=== PATIENT | female | born 1945 | race Two or more races ===

== ENCOUNTER → 2016-08-11 | Outpatient (CLI) | payer OTHER ==
[~2016-08-11] MED LIST: LETR2.5T
[2016-08-11 07:48] LABS: Basophils # (auto) 0 uL; Basophils % (auto) 0.2 % (0.0-2.0); Eosinophils # (auto) 0 uL; Hematocrit 42.7 % (36.0-46.0); Hemoglobin 14.4 g/dL (12.2-16.2); Lymphocytes # (auto) 1.3 uL; Lymphocytes % (auto) 22.6 % (10.0-50.0); Mean Corpuscular Hemoglobin 28.7 pg (28.0-32.0); Mean Corpuscular Hgb Conc. 33.8 g/dL (32.0-36.0); Mean Corpuscular Volume 84.9 fL (80.0-100.0); Mean Platelet Volume 8.4 fL (7.4-10.4); Monocytes # (auto) 0.6 uL; Monocytes % (auto) 9.6 % (0.0-12.0); Neutrophils % (auto) 67.6 % (37.0-80.0); Platelet Count (auto) 229 10^3/uL (140-450); Red Cell Distribution Width 13.8 % (11.6-16.0); White Blood Cell 5.9 10^3/uL (4.4-10.8)
[2016-08-11 07:52] LABS: Urine Bilirubin Negative (Negative); Urine Blood Negative /uL (Negative); Urine Color Yellow (Yellow); Urine Glucose Normal (Normal); Urine Ketone Negative (Negative); Urine Nitrite Negative (Negative); Urine RBC 1 /hpf (0 - 4); Urine Squamous Epithelial Cell FEW /hpf (<5); Urine Urobilinogen Normal (Negative)
[2016-08-11 08:04] LABS: Albumin 3.7 g/dL (3.4-5.0); BUN/Creatinine Ratio 31.3; Bilirubin, Total 0.5 mg/dL (0.2-1.0); Potassium 4.1 mmol/L (3.5-5.1); Total Protein 7.6 g/dL (6.4-8.2)
== END | disposition home or self-care (01) ==
LOC: LAB 07:18
DX: I10 Essential (primary) hypertension (principal); M81.0 Age-related osteoporosis without current pathological fracture; Z12.11 Encounter for screening for malignant neoplasm of colon
CPT/HCPCS: 36415; 80053; 80061; 81001; 82306; 84443; 85025

== ENCOUNTER → 2016-08-18 | Outpatient (CLI) | payer OTHER | END | disposition home or self-care (01) | LOC: LAB 11:18 | DX: Z12.11 Encounter for screening for malignant neoplasm of colon (principal); I10 Essential (primary) hypertension; M81.0 Age-related osteoporosis without current pathological fracture | CPT/HCPCS: 82270 ==

== ENCOUNTER → 2017-01-22 | Outpatient (CLI) | payer OTHER ==
[2017-01-22 07:55] LABS: Basophils # (auto) 0 uL; Basophils % (auto) 0.2 % (0.0-2.0); Eosinophils # (auto) 0 uL; Hematocrit 41.4 % (36.0-46.0); Lymphocytes # (auto) 1.8 uL; Lymphocytes % (auto) 27.5 % (10.0-50.0); Mean Corpuscular Hemoglobin 29.5 pg (28.0-32.0); Mean Corpuscular Hgb Conc. 33.9 g/dL (32.0-36.0); Monocytes # (auto) 0.6 uL; Monocytes % (auto) 9.2 % (0.0-12.0); Neutrophils % (auto) 63.1 % (37.0-80.0); Nucleated Red Blood Cells % 0.1 %; Platelet Count (auto) 204 10^3/uL (140-450); Red Cell Distribution Width 13.5 % (11.8-14.3); White Blood Cell 6.4 10^3/uL (4.4-10.8)
[2017-01-22 08:18] LABS: Albumin 3.5 g/dL (3.4-5.0); BUN/Creatinine Ratio 43.6; Bilirubin, Total 0.7 mg/dL (0.2-1.0); Calcium 8.6 mg/dL (8.5-10.1); Potassium 3.8 mmol/L (3.5-5.1); Total Protein 7.6 g/dL (6.4-8.2)
[2017-01-22 08:20] LABS: Urine Bilirubin Negative (Negative); Urine Blood Negative /uL (Negative); Urine Color Yellow (Yellow); Urine Glucose Normal (Normal); Urine Ketone Negative (Negative); Urine Mucus FEW (None Seen); Urine Nitrite Negative (Negative); Urine RBC <1 /hpf (0 - 4); Urine Squamous Epithelial Cell FEW /hpf (<5); Urine Urobilinogen Normal (Negative)
== END | disposition home or self-care (01) ==
LOC: LAB 07:28
PROVIDERS: ATTEND Internal Medicine
DX: I10 Essential (primary) hypertension (principal); K21.9 Gastro-esophageal reflux disease without esophagitis; M81.0 Age-related osteoporosis without current pathological fracture
CPT/HCPCS: 36415; 80053; 80061; 81001; 82043; 82306; 85025; 85652

== ENCOUNTER 2018-01-26 08:36 | Inpatient (IN) | payer OTHER ==
[~2018-01-26] VITALS: Ht 149.9 cm; Wt 71.4 kg
[2018-01-26] MEDS ORDERED: ASPirin 81 mg TAB PO ONE (10:30)
[2018-01-26 10:32] LABS: Basophils # (auto) 0 uL; Basophils % (auto) 0.1 % (0.0-2.0); Eosinophils # (auto) 0 uL; Hematocrit 43.4 % (36.0-46.0); Hemoglobin 14.9 g/dL (12.2-16.2); Lymphocytes # (auto) 1.2 uL; Lymphocytes % (auto) 16.6 % (10.0-50.0); Mean Corpuscular Hemoglobin 30.1 pg (28.0-32.0); Mean Corpuscular Hgb Conc. 34.3 g/dL (32.0-36.0); Mean Corpuscular Volume 87.7 fL (80.0-100.0); Monocytes # (auto) 0.5 uL; Monocytes % (auto) 6.5 % (0.0-12.0); Neutrophils # (auto) 5.5 uL; Neutrophils % (auto) 76.8 % (37.0-80.0); Nucleated Red Blood Cells % 0.2 %; Platelet Count (auto) 207 10^3/uL (140-450); Red Blood Cells 4.94 10^6/uL (4.0-5.20); Red Cell Distribution Width 13.3 % (11.8-14.3); White Blood Cell 7.1 10^3/uL (4.4-10.8)
[2018-01-26 10:52] LABS: INR 0.93 (0.9-1.15); Partial Thromboplastin Time 26.6 sec (23.78-33.04)
[2018-01-26 11:01] LABS: Alanine Aminotransferase 21 U/L (13-56); Albumin 3.6 g/dL (3.4-5.0); Alkaline Phosphatase 99 U/L (45-117); Anion Gap 6 (5-15); Aspartate Aminotransferase 15 U/L (15-37); BUN/Creatinine Ratio 23.2; Bilirubin, Total 0.5 mg/dL (0.2-1.0); Blood Urea Nitrogen 16 mg/dL (7-18); Calcium 8.6 mg/dL (8.5-10.1); Carbon Dioxide 25 mmol/L (21-32); Chloride 110 mmol/L (98-107); GFR African American 107 mL/min; GFR Non-African American 88 mL/min; Glucose 92 mg/dL (74-106); Magnesium 2.4 mg/dL (1.6-2.6); Potassium 3.6 mmol/L (3.5-5.1); Sodium 141 mmol/L (136-145); Total Protein 7.9 g/dL (6.4-8.2)
[2018-01-26] MEDS ORDERED: LORazepam 0.5 MG TAB PO PRN (16:00)
[2018-01-26] MEDS ORDERED: ONDANSETRON HCL 4 MG/2 ML VIAL IV PRN (16:00)
[2018-01-26] MEDS ORDERED: HYDROcodone-ACET 5/325MG TAB PO PRN (16:00)
[2018-01-26] MEDS ORDERED: MORPHINE SULF INJ 2 MG/ML SYRINGE 1ML IV PRN ×2 (16:00)
[2018-01-26] MEDS ORDERED: NITROGLYCERIN 0.4 MG SL TAB SL PRN (16:00)
[2018-01-26] MEDS ORDERED: ACETAMINOPHEN 500 MG TAB PO PRN (16:00)
[2018-01-26] MEDS ORDERED: TEMAZEPAM 15 MG CAP PO PRN (16:00)
[2018-01-26] MEDS: SODIUM CHLORIDE 0.9% 1,000 ML IV SCH (16:28)
[2018-01-26 20:13] LABS: Amylase 45 U/L (25-115); Lipase 154 U/L (73-393)
[2018-01-26 20:33] VITALS: BP 142/73
[2018-01-26 21:52] VITALS: BP 143/65
[2018-01-26] MEDS: METOPROLOL TARTRATE 25 MG TAB PO SCH (21:52)
[2018-01-26] MEDS: ATORVASTATIN 20 MG TAB PO SCH (21:52)
[2018-01-26 21:53] VITALS: BP 142/73
[2018-01-27] VITALS (7 sets, daily range): BP systolic 126–146; BP diastolic 66–74
[2018-01-27] MEDS ORDERED: METO-158 PO (00:47)
[2018-01-27] MEDS ORDERED: ATOR10TA52 PO (00:47)
[2018-01-27] MEDS ORDERED: PNEUMOCOCCAL VACC POLYS 25 MCG/0.5 ML VIAL IM ONE (01:30)
[2018-01-27] MEDS: SODIUM CHLORIDE 0.9% 1,000 ML IV SCH ×2 (05:18→18:15)
[2018-01-27 07:59] LABS: Cholesterol 166 mg/dL (< 200); HDL Cholesterol 48 mg/dL (40-59); LDL Cholesterol 117 mg/dL (< 100); Triglycerides 72 mg/dL (< 150)
[2018-01-27] MEDS ORDERED: ADENOSINE 48 MG in GIVE UN-DILUTED 0 ML IV STA (09:27)
[2018-01-27] MEDS: PANTOPRAZOLE 40 MG TAB PO SCH (09:36)
[2018-01-27] MEDS: NITROGLYCERIN 0.2MG/HR TOPICAL PATCH TD SCH (09:37)
[2018-01-27] MEDS: ENOXAPARIN SOD 40 MG/0.4 ML SYRINGE SC SCH (09:37)
[2018-01-27] MEDS: ASPirin 81 mg TAB PO SCH (09:37)
[2018-01-27] MEDS: LETROZOLE 2.5 MG PO SCH (09:39)
[2018-01-27] MEDS: METOPROLOL TARTRATE 25 MG TAB PO SCH ×2 (10:00→21:14)
[2018-01-27 10:12] LABS: Urine Bacteria NONE SEEN /hpf (None Seen); Urine Blood Negative /uL (Negative); Urine Specific Gravity 1.017 (1.001-1.035); Urine WBC 5 /hpf (0 - 5)
[2018-01-27 10:24] LABS: Alcohol, Urine < 3.0 mg/dL (0-5); Amphetamine Screen, Urine NEGATIVE (NEGATIVE); Barbiturate Scree,Urine NEGATIVE (NEGATIVE); Benzodiazephine Screen, Urine NEGATIVE (NEGATIVE); Cannabinoid Screen, Urine NEGATIVE (NEGATIVE); Cocaine Screen, Urine NEGATIVE (NEGATIVE); Opiate Scree,Urine NEGATIVE (NEGATIVE); Phencyclidine Screen, Urine NEGATIVE (NEGATIVE)
[2018-01-27] MEDS ORDERED: IOHEXOL 350 MG/ML 100ML IJ ONE (15:34)
[2018-01-27] MEDS: ATORVASTATIN 20 MG TAB PO SCH (21:11)
[2018-01-28 05:16] VITALS: BP 142/80
[2018-01-28] MEDS: SODIUM CHLORIDE 0.9% 1,000 ML IV SCH (06:55)
[2018-01-28 08:10] VITALS: BP 140/72
[2018-01-28 09:00] VITALS: BP 140/72
[2018-01-28] MEDS: LETROZOLE 2.5 MG PO SCH (09:42)
[2018-01-28] MEDS: ASPirin 81 mg TAB PO SCH (09:42)
[2018-01-28] MEDS: ENOXAPARIN SOD 40 MG/0.4 ML SYRINGE SC SCH (09:43)
[2018-01-28] MEDS: METOPROLOL TARTRATE 25 MG TAB PO SCH (09:43)
[2018-01-28] MEDS: PANTOPRAZOLE 40 MG TAB PO SCH (09:43)
[2018-01-28] MEDS: NITROGLYCERIN 0.2MG/HR TOPICAL PATCH TD SCH (09:44)
[2018-01-28 13:09] VITALS: BP 148/70
[2018-01-28] MEDS ORDERED: MORPHINE SULFATE 4 MG/ML SYR/VIAL IV PRN ×2 (16:00)
[2018-01-28 16:50] VITALS: BP 143/88
[2018-01-28 17:25] VITALS: BP 143/88
== END 2018-01-28 18:50 | disposition home or self-care (01) | DRG 206 ==
LOC: ER 08:37 → TELE 08:38 → TELE-CENTR 20:40
PROVIDERS: ADMIT Internal Medicine; ATTEND Family Medicine
DX: M94.0 Chondrocostal junction syndrome [Tietze] (principal); C90.00 Multiple myeloma not having achieved remission; E66.9 Obesity, unspecified; E78.00 Pure hypercholesterolemia, unspecified; E78.5 Hyperlipidemia, unspecified; E87.6 Hypokalemia; F41.9 Anxiety disorder, unspecified; G47.00 Insomnia, unspecified; I10 Essential (primary) hypertension; R79.1 Abnormal coagulation profile; Z82.49 Family history of ischemic heart disease and other diseases of the circulatory system; Z85.3 Personal history of malignant neoplasm of breast; Z90.12 Acquired absence of left breast and nipple; Z92.21 Personal history of antineoplastic chemotherapy; Z68.31 Body mass index [BMI] 31.0-31.9, adult; Z92.3 Personal history of irradiation; Z79.899 Other long term (current) drug therapy; Z90.49 Acquired absence of other specified parts of digestive tract
CPT/HCPCS: 36415; 71046; 71275; 74176; 78452; 80053; 80061; 80307; 81001; 82150; 82550; 83690; 83735; 84443; 84484; 85025; 85379; 85610; 85652; 85730; 86141; 93005; 93017; 93306; 93886; 93970; 94761; 96360; 96372; J0153

== ENCOUNTER → 2019-04-04 | Outpatient (CLI) | payer OTHER ==
[~2019-04-04] MED LIST changes: +ATOR10TA52 PO; -LETR2.5T; +METO-158 PO
[2019-04-04 08:15] LABS: Basophils # (auto) 0 uL; Basophils % (auto) 0.1 % (0.0-2.0); Eosinophils # (auto) 0 uL; Hematocrit 42.3 % (36.0-46.0); Hemoglobin 14.5 g/dL (12.2-16.2); Lymphocytes # (auto) 1.3 uL; Lymphocytes % (auto) 22.8 % (10.0-50.0); Mean Corpuscular Hemoglobin 29.9 pg (28.0-32.0); Mean Corpuscular Hgb Conc. 34.2 g/dL (32.0-36.0); Mean Corpuscular Volume 87.5 fL (80.0-100.0); Monocytes # (auto) 0.4 uL; Monocytes % (auto) 7.7 % (0.0-12.0); Neutrophils # (auto) 3.9 uL; Neutrophils % (auto) 69.4 % (37.0-80.0); Nucleated Red Blood Cells % 0.1 %; Platelet Count (auto) 182 10^3/uL (140-450); Red Blood Cells 4.83 10^6/uL (4.0-5.20); Red Cell Distribution Width 13.1 % (11.8-14.3); White Blood Cell 5.6 10^3/uL (4.4-10.8)
[2019-04-04 08:20] LABS: Urine Bacteria NONE SEEN /hpf (None Seen); Urine Blood TRACE /uL (Negative); Urine Mucus FEW (None Seen); Urine WBC 1 /hpf (0 - 5)
[2019-04-04 08:43] LABS: Albumin 3.7 g/dL (3.4-5.0); Potassium 3.9 mmol/L (3.5-5.1)
[2019-04-04 08:50] LABS: BUN/Creatinine Ratio 28.8; Bilirubin, Total 0.6 mg/dL (0.2-1.0); Calcium 8.8 mg/dL (8.5-10.1); Total Protein 7.7 g/dL (6.4-8.2)
== END | disposition home or self-care (01) ==
LOC: LAB 07:41
PROVIDERS: ATTEND Internal Medicine
DX: I10 Essential (primary) hypertension (principal); M81.0 Age-related osteoporosis without current pathological fracture
CPT/HCPCS: 36415; 80053; 80061; 81001; 82043; 82306; 82384; 84439; 84443; 85025; 85652

== ENCOUNTER → 2020-10-17 | Outpatient (CLI) | payer OTHER ==
[2020-10-17 08:08] LABS: Basophils # (auto) 0 10 ^3/uL (0-0.2); Basophils % (auto) 0.1 % (0.0-2.0); Eosinophils # (auto) 0 10 ^3/uL (0-0.8); Hematocrit 40.3 % (36.0-46.0); Hemoglobin 13.9 g/dL (12.2-16.2); Lymphocytes # (auto) 1.4 10 ^3/uL (0.4-5.4); Lymphocytes % (auto) 19.8 % (10.0-50.0); Mean Corpuscular Hemoglobin 29.9 pg (28.0-32.0); Mean Corpuscular Hgb Conc. 34.5 g/dL (32.0-36.0); Mean Corpuscular Volume 86.6 fL (80.0-100.0); Monocytes # (auto) 0.6 10 ^3/uL (0-1.3); Monocytes % (auto) 7.7 % (0.0-12.0); Neutrophils # (auto) 5.3 10 ^3/uL (1.6-8.6); Neutrophils % (auto) 72.4 % (37.0-80.0); Nucleated Red Blood Cells % 0.2 %; Platelet Count (auto) 204 10^3/uL (140-450); Red Blood Cells 4.65 10^6/uL (4.0-5.20); White Blood Cell 7.3 10^3/uL (4.4-10.8)
[2020-10-17 08:17] LABS: Urine Bacteria NONE SEEN /hpf (None Seen); Urine Blood Negative /uL (Negative); Urine Specific Gravity 1.018 (1.001-1.035); Urine WBC 1 /hpf (0 - 5)
[2020-10-17 08:51] LABS: Albumin 3.5 g/dL (3.4-5.0); Calcium 9.3 mg/dL (8.5-10.1); Potassium 3.9 mmol/L (3.5-5.1)
[2020-10-17 08:55] LABS: Bilirubin, Total 0.5 mg/dL (0.2-1.0); Total Protein 7.8 g/dL (6.4-8.2)
== END | disposition home or self-care (01) ==
LOC: LAB 07:51
PROVIDERS: ATTEND Internal Medicine
DX: I10 Essential (primary) hypertension (principal); M81.0 Age-related osteoporosis without current pathological fracture
CPT/HCPCS: 36415; 80053; 80061; 81001; 82043; 82306; 84439; 84443; 85025; 85652

== ENCOUNTER 2021-01-21 08:24 | Day surgery (SDC) | payer OTHER ==
[2021-01-17 10:14] LABS: Basophils # (auto) 0 10 ^3/uL (0-0.2); Basophils % (auto) 0.1 % (0.0-2.0); Eosinophils # (auto) 0 10 ^3/uL (0-0.8); Hematocrit 40.7 % (36.0-46.0); Hemoglobin 14.1 g/dL (12.2-16.2); Lymphocytes # (auto) 1.2 10 ^3/uL (0.4-5.4); Lymphocytes % (auto) 19.5 % (10.0-50.0); Mean Corpuscular Hemoglobin 29.5 pg (28.0-32.0); Mean Corpuscular Hgb Conc. 34.7 g/dL (32.0-36.0); Mean Corpuscular Volume 85.2 fL (80.0-100.0); Monocytes # (auto) 0.5 10 ^3/uL (0-1.3); Monocytes % (auto) 7.9 % (0.0-12.0); Neutrophils # (auto) 4.4 10 ^3/uL (1.6-8.6); Neutrophils % (auto) 72.5 % (37.0-80.0); Nucleated Red Blood Cells % 0.1 %; Red Blood Cells 4.78 10^6/uL (4.0-5.20); Red Cell Distribution Width 13.5 % (11.8-14.3)
[2021-01-17 10:18] LABS: Potassium 3.7 mmol/L (3.5-5.1)
[2021-01-17 10:26] LABS: Albumin 3.5 g/dL (3.4-5.0); BUN/Creatinine Ratio 18.2; Bilirubin, Total 0.6 mg/dL (0.2-1.0)
[~2021-01-21 08:24] MED LIST changes: +ALEN70TA74 PO; +AMLO-489 PO; +OXYB5SYP4 PO; +PANT1INJ3 PO
[2021-01-21] MEDS ORDERED: SODIUM CHLORIDE LOCK 10 ML ONE (09:05)
[2021-01-21] MEDS: MIDAZOLAM HCL 5 MG/ML-1ML VIAL ONE ×2 (10:10→10:14)
[2021-01-21] MEDS: diphenhdrAMINE HCL 50 MG/1 ML VL ONE ×2 (10:10→10:14)
[2021-01-21] MEDS: fentaNYL CITRATE 100 MCG/2 ML VL ONE ×2 (10:10→10:14)
[2021-01-21 11:10] VITALS: BP 105/48
== END 2021-01-21 11:30 | disposition home or self-care (01) ==
LOC: GI 08:24
PROVIDERS: ATTEND Internal Medicine Gastroenterology
DX: Z12.11 Encounter for screening for malignant neoplasm of colon (principal); D12.2 Benign neoplasm of ascending colon; K63.89 Other specified diseases of intestine; K57.30 Diverticulosis of large intestine without perforation or abscess without bleeding; K64.8 Other hemorrhoids; M62.89 Other specified disorders of muscle; K21.9 Gastro-esophageal reflux disease without esophagitis; I10 Essential (primary) hypertension; E78.5 Hyperlipidemia, unspecified; M81.0 Age-related osteoporosis without current pathological fracture; Z90.10 Acquired absence of unspecified breast and nipple; Z85.3 Personal history of malignant neoplasm of breast; Z90.710 Acquired absence of both cervix and uterus; Z20.822 Contact with and (suspected) exposure to COVID-19; Z79.899 Other long term (current) drug therapy
CPT/HCPCS: 36415; 45385; 80053; 85025; 88305; J1200; J2250; J3010; J7030; U0003; 99152